=== PATIENT | male | born 1965 | race African-American/Black ===

== ENCOUNTER 2017-06-07 02:39 | Emergency (ER) | payer OTHER ==
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
[2017-06-07 04:20] VITALS: BP 149/87; PULSE 79; TEMP 97.6; BMI 30.3
[2017-06-07 04:53] LABS: BASO % 0.5 % (0-2.0); EOS % 1.2 % (0-4.5); HEMATOCRIT 43.8 % (35.4-49); HEMOGLOBIN 14.1 GM/dL (11.7-16.9); LYMPH % 13.9 % (8-40); MCH 24.9 pg (25.7-33.7); MCHC 32.2 g/dl (32.0-35.9); MEAN CELL VOLUME 77.3 fl (80-96); MEAN PLT VOLUME 7.9 fl (7.5-11.1); MONO % 5.8 % (3.8-10.2); NEUT % 78.6 % (42.8-82.8); PLATELET COUNT 233 K/MM3 (134-434); RBC 5.67 M/mm3 (4.00-5.60); RDW 14.6 % (11.9-15.9); WHITE BLOOD COUNT 10.5 K/mm3 (4.0-10.0)
[2017-06-07 05:10] LABS: INR 1.01 (0.82-1.09); PROTHROMBIN TIME (PATIENT) 11.4 SEC (9.98-11.88)
[2017-06-07] MEDS ORDERED: morphine CARPU-JECT 4 MG/1 ML DISP.SYRIN IVPUSH ONE (05:20)
[2017-06-07 05:23] LABS: ALBUMIN 3.8 g/dl (3.4-5.0); ALK PHOS 56 U/L (45-117); ANION GAP 12 (8-16); BILIRUBIN,TOTAL 0.3 mg/dL (0.2-1.0); BLOOD UREA NITROGEN 13 mg/dL (7-18); CALCIUM 8.6 mg/dL (8.5-10.1); CHLORIDE 107 mmol/L (98-107); CO2 24 mmol/L (21-32); CREATININE 1.2 mg/dL (0.7-1.3); GLUCOSE,RANDOM 79 mg/dL (74-106); SGOT/AST 38 U/L (15-37); SGPT/ALT 41 U/L (12-78); SODIUM 143 mmol/L (136-145); TOT PROT 7.4 g/dl (6.4-8.2)
== END 2017-06-07 07:07 | disposition home or self-care (01) ==
LOC: JER 02:39
PROC: 3E033NZ Introduction of Analgesics, Hypnotics, Sedatives into Peripheral Vein, Percutaneous Approach (ICD-10-PCS; principal; 2017-06-07)
DX: S02.32XA Fracture of orbital floor, left side, initial encounter for closed fracture (principal); S06.890A Other specified intracranial injury without loss of consciousness, initial encounter; Y04.2XXA Assault by strike against or bumped into by another person, initial encounter; Y93.89 Activity, other specified; Y92.414 Local residential or business street as the place of occurrence of the external cause; Y99.8 Other external cause status; I10 Essential (primary) hypertension; E78.00 Pure hypercholesterolemia, unspecified; J44.9 Chronic obstructive pulmonary disease, unspecified; F17.210 Nicotine dependence, cigarettes, uncomplicated
CPT/HCPCS: 36415; 70450-TC; 70486-TC; 72125-TC; 74176-TC; 80053; 85025; 85610; 96374; 99282-25

== ENCOUNTER 2017-06-12 12:15 | Emergency (ER) | payer OTHER ==
[2017-06-12 12:27] VITALS: BP 142/92; PULSE 68; TEMP 98.3; BMI 28.3
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
[2017-06-12] MEDS ORDERED: KETOROLAC TROMETHAMINE 60 MG/2 ML VIAL IM ONE (13:19)
[2017-06-12] MEDS ORDERED: KETOROLAC TROMETHAMINE 60 MG/2 ML VIAL ONE (13:51)
== END 2017-06-12 14:37 | disposition home or self-care (01) ==
LOC: JERFT 12:15
PROC: 3E0233Z Introduction of Anti-inflammatory into Muscle, Percutaneous Approach (ICD-10-PCS; principal; 2017-06-12)
DX: S20.211D Contusion of right front wall of thorax, subsequent encounter (principal); Y04.2XXD Assault by strike against or bumped into by another person, subsequent encounter
CPT/HCPCS: 71101-TC-RT; 99281-25

== ENCOUNTER 2018-01-01 10:16 | Emergency (ER) | payer OTHER ==
[2018-01-01 10:22] VITALS: TEMP 98; BMI 29.1
--- NOTE | 2018-01-01 10:53 | PDOC ---
*Physical Exam - Vital Signs Last Vital Signs Temp Pulse Resp BP Pulse Ox 98.0 F 93 H 18 135/85 99 01/01/18 10:17 01/01/18 10:17 01/01/18 10:17 01/01/18 10:17 01/01/18 10:17 ED Treatment Course - LABORATORY CBC & Chemistry Diagram: 01/01/18 12:15 01/01/18 12:15 Medical Decision Making - Medical Decision Making 01/01/18 10:52 Pt seen by Midlevel Provider under my direct supervision Ancillary studies reviewed I agree with plan as outlined by Midlevel Provider 01/03/18 08:17 *DC/Admit/Observation/Transfer Diagnosis at time of Disposition: Dependent edema - Discharge Dispostion Disposition: HOME Condition at time of disposition: Good - Referrals Referrals: Jorge Rey [Primary Care Provider] - - Patient Instructions Printed Discharge Instructions: DI for Dependent Edema Additional Instructions: Please elevate your feet but not ambulatory higher than your heart. Please restrict sodium intake and drink plenty of water. You may also consider mild massage to increase circulation - Post Discharge Activity
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
[2018-01-01 12:26] LABS: BASO % 1.1 % (0-2.0); EOS % 3.3 % (0-4.5); HEMOGLOBIN 14.3 GM/dL (11.7-16.9); LYMPH % 25.4 % (8-40); MCHC 32.4 g/dl (32.0-35.9); MEAN CELL VOLUME 77.2 fl (80-96); MEAN PLT VOLUME 7.3 fl (7.5-11.1); MONO % 8.5 % (3.8-10.2); NEUT % 61.7 % (42.8-82.8); PLATELET COUNT 264 K/MM3 (134-434); RDW 15.8 % (11.9-15.9); WHITE BLOOD COUNT 6.7 K/mm3 (4.0-10.0)
[2018-01-01 12:47] LABS: ALBUMIN 4.3 g/dl (3.4-5.0); ALK PHOS 60 U/L (45-117); ANION GAP 10 (8-16); BILIRUBIN,TOTAL 0.8 mg/dL (0.2-1.0); BLOOD UREA NITROGEN 13 mg/dL (7-18); CALCIUM 9.4 mg/dL (8.5-10.1); CHLORIDE 105 mmol/L (98-107); CO2 27 mmol/L (21-32); CREATININE 1.1 mg/dL (0.7-1.3); GLUCOSE,RANDOM 75 mg/dL (74-106); POTASSIUM 4.2 mmol/L (3.5-5.1); SGOT/AST 24 U/L (15-37); SGPT/ALT 32 U/L (12-78); SODIUM 142 mmol/L (136-145); TOT PROT 7.8 g/dl (6.4-8.2)
[2018-01-01 14:43] VITALS: BP 135/86; PULSE 92
== END 2018-01-01 14:43 | disposition home or self-care (01) ==
LOC: JER 10:16
DX: R60.9 Edema, unspecified (principal); F17.210 Nicotine dependence, cigarettes, uncomplicated; I10 Essential (primary) hypertension; J44.9 Chronic obstructive pulmonary disease, unspecified; E78.00 Pure hypercholesterolemia, unspecified
CPT/HCPCS: 36415; 80053; 85025; 99283-25

== ENCOUNTER 2022-04-10 15:28 | Emergency (ER) | payer OTHER ==
[2022-04-10 15:57] VITALS: BP 116/81; PULSE 77; RESP 18; TEMP 98.1; BMI 30.5
== END 2022-04-10 20:47 | disposition left against medical advice (07) ==
LOC: JERFT 15:28
DX: S79.921A Unspecified injury of right thigh, initial encounter (principal); W01.0XXA Fall on same level from slipping, tripping and stumbling without subsequent striking against object, initial encounter
CPT/HCPCS: 99281-25

== ENCOUNTER 2022-04-12 11:50 | Emergency (ER) | payer OTHER ==
[2022-04-12 12:12] VITALS: BP 116/84; PULSE 61; RESP 18; TEMP 98; BMI 30.5
[2022-04-12] MEDS ORDERED: ACETAMINOPHEN 500 MG TABLET (FP) PO ONE (14:14)
[2022-04-12] MEDS ORDERED: KETOROLAC TROMETHAMINE 30 MG/1 ML VIAL IM ONE (14:14)
[2022-04-12] MEDS ORDERED: KETOROLAC TROMETHAMINE 30 MG/1 ML VIAL ONE (14:15)
[2022-04-12] MEDS ORDERED: ACETAMINOPHEN 500 MG TABLET (FP) ONE (14:16)
== END 2022-04-12 15:22 | disposition home or self-care (01) ==
LOC: JERFT 11:50 → JER 11:50 → JERFT 15:22
PROC: 3E023GC Introduction of Other Therapeutic Substance into Muscle, Percutaneous Approach (ICD-10-PCS; principal; 2022-04-12)
DX: M54.50 Low back pain, unspecified (principal); M25.552 Pain in left hip; W10.8XXA Fall (on) (from) other stairs and steps, initial encounter
CPT/HCPCS: 72170-TC-FY; 73502-TC-LT-FY; 99284-25

== ENCOUNTER 2023-01-29 12:40 | Emergency (ER) | payer OTHER ==
[2023-01-29 12:49] VITALS: BP 123/82; PULSE 70; RESP 18; TEMP 98.5; BMI 27.8
== END 2023-01-29 17:02 | disposition home or self-care (01) ==
LOC: JERFT 12:40
DX: M25.512 Pain in left shoulder (principal)
CPT/HCPCS: 73030-TC-LT-FY; 99283-25

== ENCOUNTER 2023-05-05 09:41 | Emergency (ER) | payer OTHER ==
[2023-05-05 09:53] VITALS: RESP 18; TEMP 98.1; BMI 27.8
[2023-05-05 10:56] LABS: BASO % 1.2 % (0-2.0); EOS % 2.6 % (0-4.5); HEMATOCRIT 45.2 % (35.4-49); HEMOGLOBIN 14.4 GM/dL (11.7-16.9); LYMPH % 34.3 % (8-40); MCH 24.7 pg (25.7-33.7); MCHC 31.8 g/dl (32.0-35.9); MEAN CELL VOLUME 77.6 fl (80-96); MONO % 8.3 % (3.8-10.2); NEUT % 53.6 % (42.8-82.8); PLATELET COUNT 240 10^3/uL (134-434); RBC 5.82 M/mm3 (4.00-5.60); RDW 13.8 % (11.9-15.9); WHITE BLOOD COUNT 5.6 K/mm3 (4.0-10.0)
[2023-05-05] MEDS ORDERED: ACETAMINOPHEN 1000 MG/100 ML BAG IVPB ONE (11:12)
[2023-05-05 11:22] LABS: POTASSIUM 4.3 mmol/L (3.5-5.1)
[2023-05-05 11:26] LABS: ALBUMIN 3.9 g/dl (3.4-5.0); BLOOD UREA NITROGEN 19.9 mg/dL (7-18); MAGNESIUM 2.1 mg/dL (1.8-2.4)
[2023-05-05 11:28] LABS: CREATININE 1.1 mg/dL (0.55-1.3)
[2023-05-05 11:30] LABS: BILIRUBIN,TOTAL 0.3 mg/dL (0.2-1)
[2023-05-05] MEDS ORDERED: ACETAMINOPHEN INJECTION 100 ML IVPB ONE (12:07)
[2023-05-05 15:33] VITALS: BP 131/84; PULSE 50
== END 2023-05-05 15:34 | disposition home or self-care (01) ==
LOC: JER 09:41
PROC: 3E033NZ Introduction of Analgesics, Hypnotics, Sedatives into Peripheral Vein, Percutaneous Approach (ICD-10-PCS; principal; 2023-05-05)
DX: R10.9 Unspecified abdominal pain (principal); S39.011A Strain of muscle, fascia and tendon of abdomen, initial encounter; X58.XXXA Exposure to other specified factors, initial encounter; Z20.822 Contact with and (suspected) exposure to COVID-19
CPT/HCPCS: 0241U-QW; 36415; 71045-TC-FY; 71275-TC; 80053; 83735; 84484; 85025; 93005; 93010; 96374; 99285-25

== ENCOUNTER 2023-05-31 20:17 | Emergency (ER) | payer OTHER ==
[2023-05-31 20:24] VITALS: BP 127/84; PULSE 76; RESP 18; TEMP 97; BMI 27.8
[2023-05-31] MEDS ORDERED: TETRACAINE 0.5% HCL 0.6ML DROPPER.BOTTLE OU ONE (21:52)
[2023-05-31] MEDS ORDERED: FLUORESCEIN NA 1 EA STRIP OD ONE (22:54)
[2023-06-01] MEDS ORDERED: DIPHTH,PERTUSS(ACELL),TET 0.5 ML DISP.SYRIN IM ONE ×2 (00:03→00:32)
[2023-06-01] MEDS ORDERED: FLUORESCEIN NA 1 EA STRIP ONE (00:23)
[2023-06-01] MEDS ORDERED: TETRACAINE 0.5% OPHTH SOLN 2 ML BOTTLE ONE (00:23)
== END 2023-06-01 00:41 | disposition short-term general hospital (02) ==
LOC: JER 20:17
PROC: 0HQGXZZ Repair Left Hand Skin, External Approach (ICD-10-PCS; principal; 2023-05-31)
PROC: 3E0234Z Introduction of Serum, Toxoid and Vaccine into Muscle, Percutaneous Approach (ICD-10-PCS; 2023-06-01)
DX: S61.412A Laceration without foreign body of left hand, initial encounter (principal); S69.92XA Unspecified injury of left wrist, hand and finger(s), initial encounter; S05.02XA Injury of conjunctiva and corneal abrasion without foreign body, left eye, initial encounter; W26.8XXA Contact with other sharp object(s), not elsewhere classified, initial encounter; Z77.098 Contact with and (suspected) exposure to other hazardous, chiefly nonmedicinal, chemicals; H57.12 Ocular pain, left eye; H53.8 Other visual disturbances; R51.9 Headache, unspecified
CPT/HCPCS: 12002-25; 70450-TC; 70486-TC; 73130-TC-LT-FY; 90471; 90715; 99285-25